=== PATIENT | male | born 1970 | race African-American/Black ===

== ENCOUNTER 2017-08-21 16:05 | Inpatient (IN) | payer MEDICARE, MEDICAID ==
[~2017-08-21] VITALS: Ht 177.8 cm; Wt 127.9 kg
[~2017-08-21 16:05] MED LIST: ASPI-1159 PO; CALC0.253 PO; GLIP10TA10 PO; METO100T16 PO; PIOG15TA6 PO; PRAV20TA57 PO; PRED5TAB48 PO; TERA2CAP4 PO
[2017-08-21] MEDS ORDERED: DEXTROSE 50% WATER 50ML SYRINGE IV PRN ×2 (17:30→19:30)
[2017-08-21] MEDS ORDERED: ONDANSETRON 4MG ODT PO PRN (19:30)
[2017-08-21] MEDS ORDERED: LACTULOSE 20G/30ML UDC PO PRN (19:30)
[2017-08-21] MEDS ORDERED: DOCUSATE SODIUM 100MG CAPSULE PO PRN (19:30)
[2017-08-21 20:00] VITALS: BP_SYST 147; BP_SYST 163; BP_DIAS 70; BP_DIAS 76
[2017-08-21] MEDS ORDERED: NON FORMULARY PATIENT HOME MED EA XX SCH ×4 (21:00→21:45)
[2017-08-21] MEDS: BLOOD SUGAR DIAGNOSTIC STRIP TEST SCH (21:00)
[2017-08-21] MEDS ORDERED: SILVER SULFADIAZINE 1% CREAM 25GM TOP SCH (21:00)
[2017-08-21] MEDS ORDERED: ALBUTEROL (0.083%) 2.5MG/3ML NEB HHN PRN (22:00)
[2017-08-21] MEDS: ATORVASTATIN CALCIUM 10MG TABLET PO SCH (23:17)
[2017-08-21] MEDS: CALCIUM CARBONATE 1250MG TABLET (500MG ELEMENTAL CALCIUM) PO SCH (23:18)
[2017-08-21] MEDS: METOPROLOL TARTRATE 100MG TABLET PO SCH (23:18)
[2017-08-21] MEDS: CLINDAMYCIN HCL 150MG CAPSULE PO SCH (23:18)
[2017-08-21] MEDS: TERAZOSIN HCL 1MG CAPSULE PO SCH (23:20)
[2017-08-21] MEDS: AMOXICILLIN/POTASSIUM CLAVULANATE 500/125MG TAB PO SCH (23:20)
[2017-08-22] MEDS: BLOOD SUGAR DIAGNOSTIC STRIP TEST SCH ×4 (06:11→21:07)
[2017-08-22] MEDS: CLINDAMYCIN HCL 150MG CAPSULE PO SCH ×3 (06:15→21:02)
[2017-08-22 07:39] LABS: BASOPHILS % 1.8 % (0.0-2.0); EOSINOPHILS % 5.9 % (0.0-5.0); HEMATOCRIT. 23.7 % (42.0-52.0); HEMOGLOBIN. 7.6 g/dL (14.0-18.0); LYMPHOCYTES % 25.4 % (20.0-50.0); MEAN CORPUSCULAR HEMOGLOBIN 29.1 pg (28.0-32.0); MEAN CORPUSCULAR VOLUME 90.8 fL (80.0-94.0); MEAN PLATELET VOLUME 7.8 fl (7.4-10.4); MONOCYTES % 9.3 % (2.0-8.0); NEUTROPHILS % 57.6 % (40.0-76.0); PLATELET 213 x1000/uL (130-400); RED CELL DISTRIBUTION WIDTH 17.9 % (11.6-14.6)
[2017-08-22 07:52] VITALS: BP 155/84
[2017-08-22 08:36] LABS: INR 1.2; PROTHROMBIN TIME 12.1 sec (9.4-11.6)
[2017-08-22] MEDS ORDERED: SODIUM HYPOCHLORITE (0.25%) 480ML SOLUTION (HALF STRENGTH) TOP SCH (09:00)
[2017-08-22] MEDS ORDERED: PREDNISONE 10MG TABLET PO SCH (09:00)
[2017-08-22] MEDS: SEVELAMER CARBONATE 800 MG TABLET PO SCH ×3 (10:27→19:24)
[2017-08-22] MEDS: METOPROLOL TARTRATE 100MG TABLET PO SCH ×2 (10:29→21:02)
[2017-08-22] MEDS: LOSARTAN POTASSIUM 100 MG TABLET PO SCH (10:29)
[2017-08-22] MEDS: AMOXICILLIN/POTASSIUM CLAVULANATE 500/125MG TAB PO SCH (10:30)
[2017-08-22] MEDS: CALCIUM CARBONATE 1250MG TABLET (500MG ELEMENTAL CALCIUM) PO SCH ×2 (10:30→21:02)
[2017-08-22] MEDS: SILVER SULFADIAZINE 1% CREAM 50GM TOP SCH (10:31)
[2017-08-22] MEDS: SODIUM HYPOCHLORITE (0.25%) 480ML SOLUTION (HALF STRENGTH) TOP SCH (10:31)
[2017-08-22] MEDS: FLUCONAZOLE 200MG TABLET PO SCH (10:41)
[2017-08-22] MEDS: HEPARIN 5000 UNITS/ML VIAL SUBCUT SCH ×2 (10:41→21:01)
[2017-08-22] MEDS: CALCITRIOL 0.25MCG CAPSULE PO SCH (10:41)
[2017-08-22] MEDS: TRAMADOL 50MG TABLET PO PRN (10:42)
[2017-08-22] MEDS: CIPROFLOXACIN HCL 250MG TABLET PO SCH (11:59)
[2017-08-22] MEDS: ZINC SULFATE 220 MG ( 50 ) CAPSULE PO SCH (19:25)
[2017-08-22] MEDS: FOLIC ACID/VITAMIN B COMP W-C TABLET PO SCH (19:25)
[2017-08-22 20:00] VITALS: BP 159/69
[2017-08-22] MEDS: ASCORBIC ACID 250 MG TABLET PO SCH (21:01)
[2017-08-22] MEDS: TERAZOSIN HCL 1MG CAPSULE PO SCH (21:02)
[2017-08-22] MEDS: ATORVASTATIN CALCIUM 10MG TABLET PO SCH (21:02)
[2017-08-22] MEDS: EPOETIN ALFA 10000UNITS/ML VIAL SUBCUT SCH (21:03)
[2017-08-23] MEDS: CLINDAMYCIN HCL 150MG CAPSULE PO SCH ×3 (05:38→21:30)
[2017-08-23] MEDS: BLOOD SUGAR DIAGNOSTIC STRIP TEST SCH ×4 (05:41→21:34)
[2017-08-23 06:58] LABS: BASOPHILS % 2.2 % (0.0-2.0); EOSINOPHILS % 6.1 % (0.0-5.0); HEMATOCRIT. 23.8 % (42.0-52.0); HEMOGLOBIN. 7.8 g/dL (14.0-18.0); LYMPHOCYTES % 29.8 % (20.0-50.0); MEAN CORPUSCULAR HEMOGLOBIN 29.6 pg (28.0-32.0); MEAN PLATELET VOLUME 7.7 fl (7.4-10.4); MONOCYTES % 10.5 % (2.0-8.0); NEUTROPHILS % 51.4 % (40.0-76.0); PLATELET 186 x1000/uL (130-400); RED BLOOD CELL COUNT 2.64 mill/uL (4.7-6.1); RED CELL DISTRIBUTION WIDTH 17.9 % (11.6-14.6)
[2017-08-23 08:00] VITALS: BP 150/89
[2017-08-23] MEDS: ZINC SULFATE 220 MG ( 50 ) CAPSULE PO SCH (08:33)
[2017-08-23] MEDS: METOPROLOL TARTRATE 100MG TABLET PO SCH ×2 (08:33→21:31)
[2017-08-23] MEDS: AMOXICILLIN/POTASSIUM CLAVULANATE 500/125MG TAB PO SCH (08:33)
[2017-08-23] MEDS: FOLIC ACID/VITAMIN B COMP W-C TABLET PO SCH (08:33)
[2017-08-23] MEDS: CALCITRIOL 0.25MCG CAPSULE PO SCH (08:33)
[2017-08-23] MEDS: LOSARTAN POTASSIUM 100 MG TABLET PO SCH (08:34)
[2017-08-23] MEDS: FLUCONAZOLE 200MG TABLET PO SCH (08:34)
[2017-08-23] MEDS: PREDNISONE 10MG TABLET PO SCH (08:34)
[2017-08-23] MEDS: ASCORBIC ACID 250 MG TABLET PO SCH ×2 (08:35→21:30)
[2017-08-23] MEDS: SEVELAMER CARBONATE 800 MG TABLET PO SCH ×3 (08:35→18:13)
[2017-08-23] MEDS: HEPARIN 5000 UNITS/ML VIAL SUBCUT SCH ×2 (08:38→21:34)
[2017-08-23] MEDS: CALCIUM CARBONATE 1250MG TABLET (500MG ELEMENTAL CALCIUM) PO SCH ×2 (08:47→21:31)
[2017-08-23] MEDS: SODIUM HYPOCHLORITE (0.25%) 480ML SOLUTION (HALF STRENGTH) TOP SCH (08:49)
[2017-08-23] MEDS: SILVER SULFADIAZINE 1% CREAM 50GM TOP SCH (08:49)
[2017-08-23 09:21] LABS: CHLORIDE 108 mEq/L (98-107)
[2017-08-23 09:44] LABS: CARBON DIOXIDE 27 mEq/L (21-32); PHOSPHORUS 3.3 mg/dL (2.5-4.9)
[2017-08-23] MEDS: AMLODIPINE 5MG TABLET PO SCH (10:30)
[2017-08-23] MEDS: TRAMADOL 50MG TABLET PO PRN (15:45)
[2017-08-23 20:00] VITALS: BP 145/75
[2017-08-23] MEDS: TERAZOSIN HCL 1MG CAPSULE PO SCH (21:32)
[2017-08-23] MEDS: CIPROFLOXACIN HCL 250MG TABLET PO SCH (21:33)
[2017-08-23] MEDS: ATORVASTATIN CALCIUM 10MG TABLET PO SCH (21:33)
[2017-08-24] MEDS: BLOOD SUGAR DIAGNOSTIC STRIP TEST SCH ×4 (06:19→21:54)
[2017-08-24] MEDS: CLINDAMYCIN HCL 150MG CAPSULE PO SCH ×3 (06:21→21:53)
[2017-08-24 07:05] LABS: BASOPHILS % 1.5 % (0.0-2.0); EOSINOPHILS % 5.8 % (0.0-5.0); HEMATOCRIT. 25.5 % (42.0-52.0); HEMOGLOBIN. 8.2 g/dL (14.0-18.0); LYMPHOCYTES % 31.9 % (20.0-50.0); MEAN CORPUSCULAR VOLUME 89.9 fL (80.0-94.0); MEAN PLATELET VOLUME 7.7 fl (7.4-10.4); MONOCYTES % 9.5 % (2.0-8.0); NEUTROPHILS % 51.3 % (40.0-76.0); PLATELET 177 x1000/uL (130-400); RED BLOOD CELL COUNT 2.83 mill/uL (4.7-6.1); RED CELL DISTRIBUTION WIDTH 17.6 % (11.6-14.6)
[2017-08-24 07:50] LABS: PHOSPHORUS 4.3 mg/dL (2.5-4.9)
[2017-08-24 08:00] VITALS: BP 158/69
[2017-08-24] MEDS: LOSARTAN POTASSIUM 100 MG TABLET PO SCH (09:00)
[2017-08-24] MEDS: AMLODIPINE 5MG TABLET PO SCH (09:00)
[2017-08-24] MEDS: METOPROLOL TARTRATE 100MG TABLET PO SCH ×2 (09:00→21:54)
[2017-08-24] MEDS: CALCITRIOL 0.25MCG CAPSULE PO SCH (10:14)
[2017-08-24] MEDS: ZINC SULFATE 220 MG ( 50 ) CAPSULE PO SCH (10:15)
[2017-08-24] MEDS: ASCORBIC ACID 250 MG TABLET PO SCH ×2 (10:15→21:53)
[2017-08-24] MEDS: SEVELAMER CARBONATE 800 MG TABLET PO SCH ×3 (10:15→22:03)
[2017-08-24] MEDS: FOLIC ACID/VITAMIN B COMP W-C TABLET PO SCH (10:15)
[2017-08-24] MEDS: FLUCONAZOLE 200MG TABLET PO SCH (10:15)
[2017-08-24] MEDS: AMOXICILLIN/POTASSIUM CLAVULANATE 500/125MG TAB PO SCH (10:16)
[2017-08-24] MEDS: PREDNISONE 10MG TABLET PO SCH (10:16)
[2017-08-24] MEDS: CALCIUM CARBONATE 1250MG TABLET (500MG ELEMENTAL CALCIUM) PO SCH ×2 (10:16→21:53)
[2017-08-24] MEDS: SILVER SULFADIAZINE 1% CREAM 50GM TOP SCH (10:20)
[2017-08-24] MEDS: SODIUM HYPOCHLORITE (0.25%) 480ML SOLUTION (HALF STRENGTH) TOP SCH (10:20)
[2017-08-24] MEDS: HEPARIN 5000 UNITS/ML VIAL SUBCUT SCH ×2 (11:54→21:55)
[2017-08-24 20:00] VITALS: BP 156/74
[2017-08-24] MEDS: CIPROFLOXACIN HCL 250MG TABLET PO SCH (21:53)
[2017-08-24] MEDS: TERAZOSIN HCL 1MG CAPSULE PO SCH (21:53)
[2017-08-24] MEDS: ATORVASTATIN CALCIUM 10MG TABLET PO SCH (21:54)
[2017-08-24] MEDS: EPOETIN ALFA 10000UNITS/ML VIAL SUBCUT SCH (21:54)
[2017-08-25] MEDS: CLINDAMYCIN HCL 150MG CAPSULE PO SCH ×3 (06:07→21:44)
[2017-08-25] MEDS: BLOOD SUGAR DIAGNOSTIC STRIP TEST SCH ×4 (06:07→21:46)
[2017-08-25 08:00] VITALS: BP 131/62
[2017-08-25] MEDS: ASCORBIC ACID 250 MG TABLET PO SCH ×2 (09:15→21:44)
[2017-08-25] MEDS: PREDNISONE 10MG TABLET PO SCH (09:15)
[2017-08-25] MEDS: AMLODIPINE 5MG TABLET PO SCH (09:15)
[2017-08-25] MEDS: FLUCONAZOLE 200MG TABLET PO SCH (09:15)
[2017-08-25] MEDS: CALCITRIOL 0.25MCG CAPSULE PO SCH (09:15)
[2017-08-25] MEDS: AMOXICILLIN/POTASSIUM CLAVULANATE 500/125MG TAB PO SCH (09:15)
[2017-08-25] MEDS: SEVELAMER CARBONATE 800 MG TABLET PO SCH ×3 (09:15→17:14)
[2017-08-25] MEDS: ZINC SULFATE 220 MG ( 50 ) CAPSULE PO SCH (09:16)
[2017-08-25] MEDS: METOPROLOL TARTRATE 100MG TABLET PO SCH ×2 (09:16→21:45)
[2017-08-25] MEDS: FOLIC ACID/VITAMIN B COMP W-C TABLET PO SCH (09:16)
[2017-08-25] MEDS: LOSARTAN POTASSIUM 100 MG TABLET PO SCH (09:16)
[2017-08-25] MEDS: CALCIUM CARBONATE 1250MG TABLET (500MG ELEMENTAL CALCIUM) PO SCH ×2 (09:16→21:45)
[2017-08-25] MEDS: SILVER SULFADIAZINE 1% CREAM 50GM TOP SCH (09:17)
[2017-08-25] MEDS: HEPARIN 5000 UNITS/ML VIAL SUBCUT SCH ×2 (09:17→21:46)
[2017-08-25] MEDS: SODIUM HYPOCHLORITE (0.25%) 480ML SOLUTION (HALF STRENGTH) TOP SCH (09:17)
[2017-08-25] MEDS: TRAMADOL 50MG TABLET PO PRN (11:30)
[2017-08-25] MEDS ORDERED: LACTULOSE 20G/30ML UDC PO SCH (13:40)
[2017-08-25] MEDS: ACETAMINOPHEN 500MG TABLET PO PRN (14:45)
[2017-08-25 20:00] VITALS: BP 145/67
[2017-08-25] MEDS: ATORVASTATIN CALCIUM 10MG TABLET PO SCH (21:44)
[2017-08-25] MEDS: CIPROFLOXACIN HCL 250MG TABLET PO SCH (21:45)
[2017-08-25] MEDS: TERAZOSIN HCL 1MG CAPSULE PO SCH (21:45)
[2017-08-26] MEDS: CLINDAMYCIN HCL 150MG CAPSULE PO SCH ×3 (05:33→21:50)
[2017-08-26] MEDS: BLOOD SUGAR DIAGNOSTIC STRIP TEST SCH ×4 (05:33→21:51)
[2017-08-26 08:16] VITALS: BP 139/65
[2017-08-26] MEDS: SEVELAMER CARBONATE 800 MG TABLET PO SCH ×3 (08:52→21:49)
[2017-08-26] MEDS: FOLIC ACID/VITAMIN B COMP W-C TABLET PO SCH (08:53)
[2017-08-26] MEDS: ASCORBIC ACID 250 MG TABLET PO SCH ×2 (08:56→21:50)
[2017-08-26] MEDS: ZINC SULFATE 220 MG ( 50 ) CAPSULE PO SCH (08:56)
[2017-08-26] MEDS: FLUCONAZOLE 200MG TABLET PO SCH (08:56)
[2017-08-26] MEDS: CALCIUM CARBONATE 1250MG TABLET (500MG ELEMENTAL CALCIUM) PO SCH ×2 (08:56→21:50)
[2017-08-26] MEDS: AMOXICILLIN/POTASSIUM CLAVULANATE 500/125MG TAB PO SCH (08:56)
[2017-08-26] MEDS: HEPARIN 5000 UNITS/ML VIAL SUBCUT SCH ×2 (08:57→21:51)
[2017-08-26] MEDS: PREDNISONE 10MG TABLET PO SCH (08:57)
[2017-08-26] MEDS: METOPROLOL TARTRATE 100MG TABLET PO SCH ×2 (09:00→21:50)
[2017-08-26] MEDS: LOSARTAN POTASSIUM 100 MG TABLET PO SCH (09:00)
[2017-08-26] MEDS: AMLODIPINE 5MG TABLET PO SCH (09:00)
[2017-08-26] MEDS: SODIUM HYPOCHLORITE (0.25%) 480ML SOLUTION (HALF STRENGTH) TOP SCH (09:06)
[2017-08-26] MEDS: SILVER SULFADIAZINE 1% CREAM 50GM TOP SCH (09:06)
[2017-08-26] MEDS: CALCITRIOL 0.25MCG CAPSULE PO SCH (09:45)
[2017-08-26 10:17] LABS: BASOPHILS % 1.8 % (0.0-2.0); EOSINOPHILS % 5.1 % (0.0-5.0); HEMOGLOBIN. 7.8 g/dL (14.0-18.0); LYMPHOCYTES % 33.9 % (20.0-50.0); MEAN CORPUSCULAR HEMOGLOBIN 29.2 pg (28.0-32.0); MEAN CORPUSCULAR VOLUME 89.4 fL (80.0-94.0); MONOCYTES % 10.3 % (2.0-8.0); NEUTROPHILS % 48.9 % (40.0-76.0); PLATELET 149 x1000/uL (130-400); RED BLOOD CELL COUNT 2.68 mill/uL (4.7-6.1); RED CELL DISTRIBUTION WIDTH 17.7 % (11.6-14.6)
[2017-08-26 10:44] LABS: PHOSPHORUS 3.9 mg/dL (2.5-4.9)
[2017-08-26] MEDS ORDERED: HEPARIN SODIUM 1,000 UNIT/1ML VIAL IV NR (17:30)
[2017-08-26 20:00] VITALS: BP 135/71
[2017-08-26] MEDS: CIPROFLOXACIN HCL 250MG TABLET PO SCH (21:49)
[2017-08-26] MEDS: TERAZOSIN HCL 1MG CAPSULE PO SCH (21:50)
[2017-08-26] MEDS: ATORVASTATIN CALCIUM 10MG TABLET PO SCH (21:51)
[2017-08-26] MEDS: EPOETIN ALFA 10000UNITS/ML VIAL SUBCUT SCH (21:51)
[2017-08-27] MEDS: CLINDAMYCIN HCL 150MG CAPSULE PO SCH ×3 (05:39→21:27)
[2017-08-27] MEDS: BLOOD SUGAR DIAGNOSTIC STRIP TEST SCH ×4 (05:40→21:28)
[2017-08-27 08:00] VITALS: BP 151/72
[2017-08-27] MEDS: LOSARTAN POTASSIUM 100 MG TABLET PO SCH (09:46)
[2017-08-27] MEDS: CALCITRIOL 0.25MCG CAPSULE PO SCH (09:46)
[2017-08-27] MEDS: PREDNISONE 10MG TABLET PO SCH (09:47)
[2017-08-27] MEDS: AMLODIPINE 5MG TABLET PO SCH (09:47)
[2017-08-27] MEDS: METOPROLOL TARTRATE 100MG TABLET PO SCH ×2 (09:49→21:29)
[2017-08-27] MEDS: FLUCONAZOLE 200MG TABLET PO SCH (09:49)
[2017-08-27] MEDS: FOLIC ACID/VITAMIN B COMP W-C TABLET PO SCH (09:49)
[2017-08-27] MEDS: ASCORBIC ACID 250 MG TABLET PO SCH ×2 (09:49→21:28)
[2017-08-27] MEDS: SEVELAMER CARBONATE 800 MG TABLET PO SCH ×3 (09:50→18:07)
[2017-08-27] MEDS: CALCIUM CARBONATE 1250MG TABLET (500MG ELEMENTAL CALCIUM) PO SCH ×2 (09:50→21:28)
[2017-08-27] MEDS: AMOXICILLIN/POTASSIUM CLAVULANATE 500/125MG TAB PO SCH (09:51)
[2017-08-27] MEDS: ZINC SULFATE 220 MG ( 50 ) CAPSULE PO SCH (09:51)
[2017-08-27] MEDS: HEPARIN 5000 UNITS/ML VIAL SUBCUT SCH ×2 (09:52→21:29)
[2017-08-27] MEDS: SILVER SULFADIAZINE 1% CREAM 50GM TOP SCH (09:55)
[2017-08-27] MEDS: SODIUM HYPOCHLORITE (0.25%) 480ML SOLUTION (HALF STRENGTH) TOP SCH (09:56)
[2017-08-27 17:11] LABS: 25-HYDROXY VITAMIN D3 9.3 ng/mL (.)
[2017-08-27 20:00] VITALS: BP 156/77
[2017-08-27] MEDS: ATORVASTATIN CALCIUM 10MG TABLET PO SCH (21:25)
[2017-08-27] MEDS: TERAZOSIN HCL 1MG CAPSULE PO SCH (21:27)
[2017-08-27] MEDS: CIPROFLOXACIN HCL 250MG TABLET PO SCH (21:28)
[2017-08-28] MEDS: BLOOD SUGAR DIAGNOSTIC STRIP TEST SCH ×2 (06:02→11:15)
[2017-08-28] MEDS: CLINDAMYCIN HCL 150MG CAPSULE PO SCH ×3 (06:02→21:56)
[2017-08-28 08:00] VITALS: BP 154/76
[2017-08-28] MEDS: AMLODIPINE 5MG TABLET PO SCH ×2 (08:41→22:08)
[2017-08-28] MEDS: CALCIUM CARBONATE 1250MG TABLET (500MG ELEMENTAL CALCIUM) PO SCH ×2 (08:41→21:56)
[2017-08-28] MEDS: FOLIC ACID/VITAMIN B COMP W-C TABLET PO SCH (08:41)
[2017-08-28] MEDS: ASCORBIC ACID 250 MG TABLET PO SCH (08:41)
[2017-08-28] MEDS: AMOXICILLIN/POTASSIUM CLAVULANATE 500/125MG TAB PO SCH (08:42)
[2017-08-28] MEDS: METOPROLOL TARTRATE 100MG TABLET PO SCH ×2 (08:42→21:57)
[2017-08-28] MEDS: PREDNISONE 10MG TABLET PO SCH (08:42)
[2017-08-28] MEDS: CALCITRIOL 0.25MCG CAPSULE PO SCH (08:42)
[2017-08-28] MEDS: FLUCONAZOLE 200MG TABLET PO SCH (08:42)
[2017-08-28] MEDS: LOSARTAN POTASSIUM 100 MG TABLET PO SCH (08:42)
[2017-08-28] MEDS: ZINC SULFATE 220 MG ( 50 ) CAPSULE PO SCH (08:42)
[2017-08-28] MEDS: SODIUM HYPOCHLORITE (0.25%) 480ML SOLUTION (HALF STRENGTH) TOP SCH (08:43)
[2017-08-28] MEDS: SEVELAMER CARBONATE 800 MG TABLET PO SCH ×3 (08:43→16:33)
[2017-08-28] MEDS: SILVER SULFADIAZINE 1% CREAM 50GM TOP SCH (08:43)
[2017-08-28] MEDS: HEPARIN 5000 UNITS/ML VIAL SUBCUT SCH ×2 (08:44→21:59)
[2017-08-28] MEDS ORDERED: ERGOCALCIFEROL 50000UNITS CAPSULE PO SCH (14:00)
[2017-08-28] MEDS: ACETAMINOPHEN 500MG TABLET PO PRN (14:46)
[2017-08-28 20:00] VITALS: BP 147/69
[2017-08-28] MEDS: TERAZOSIN HCL 1MG CAPSULE PO SCH (21:56)
[2017-08-28] MEDS: ATORVASTATIN CALCIUM 10MG TABLET PO SCH (21:56)
[2017-08-29] MEDS: EPOETIN ALFA 10000UNITS/ML VIAL SUBCUT SCH (00:43)
[2017-08-29 06:31] LABS: BASOPHILS % 1.6 % (0.0-2.0); EOSINOPHILS % 5.6 % (0.0-5.0); HEMATOCRIT. 24.8 % (42.0-52.0); LYMPHOCYTES % 33.1 % (20.0-50.0); MEAN CORPUSCULAR HEMOGLOBIN 28.8 pg (28.0-32.0); MEAN CORPUSCULAR VOLUME 89.3 fL (80.0-94.0); MEAN PLATELET VOLUME 7.8 fl (7.4-10.4); MONOCYTES % 10.1 % (2.0-8.0); NEUTROPHILS % 49.6 % (40.0-76.0); PLATELET 147 x1000/uL (130-400); RED BLOOD CELL COUNT 2.78 mill/uL (4.7-6.1); RED CELL DISTRIBUTION WIDTH 16.8 % (11.6-14.6)
[2017-08-29 08:00] VITALS: BP 150/76
[2017-08-29] MEDS: LOSARTAN POTASSIUM 100 MG TABLET PO SCH (09:00)
[2017-08-29] MEDS: AMLODIPINE 5MG TABLET PO SCH ×2 (09:00→23:14)
[2017-08-29] MEDS: CALCIUM CARBONATE 1250MG TABLET (500MG ELEMENTAL CALCIUM) PO SCH ×2 (09:45→23:15)
[2017-08-29] MEDS: ZINC SULFATE 220 MG ( 50 ) CAPSULE PO SCH (09:45)
[2017-08-29] MEDS: SEVELAMER CARBONATE 800 MG TABLET PO SCH ×3 (09:45→17:00)
[2017-08-29] MEDS: FOLIC ACID/VITAMIN B COMP W-C TABLET PO SCH (09:45)
[2017-08-29] MEDS: FLUCONAZOLE 200MG TABLET PO SCH (09:45)
[2017-08-29] MEDS: METOPROLOL TARTRATE 100MG TABLET PO SCH ×2 (09:46→23:15)
[2017-08-29] MEDS: HEPARIN 5000 UNITS/ML VIAL SUBCUT SCH ×2 (09:48→23:15)
[2017-08-29] MEDS: SILVER SULFADIAZINE 1% CREAM 50GM TOP SCH (09:49)
[2017-08-29] MEDS: SODIUM HYPOCHLORITE (0.25%) 480ML SOLUTION (HALF STRENGTH) TOP SCH (09:49)
[2017-08-29] MEDS: ASCORBIC ACID 250 MG TABLET PO SCH ×2 (14:12→23:14)
[2017-08-29] MEDS: CALCITRIOL 0.25MCG CAPSULE PO SCH (14:12)
[2017-08-29 20:00] VITALS: BP 159/111
[2017-08-29] MEDS: ATORVASTATIN CALCIUM 10MG TABLET PO SCH (23:14)
[2017-08-29] MEDS: TERAZOSIN HCL 1MG CAPSULE PO SCH (23:14)
[2017-08-29 23:16] VITALS: BP 123/57
[2017-08-30 08:00] VITALS: BP 144/54
[2017-08-30] MEDS: AMLODIPINE 5MG TABLET PO SCH ×2 (09:00→21:00)
[2017-08-30] MEDS: METOPROLOL TARTRATE 100MG TABLET PO SCH ×2 (09:00→21:00)
[2017-08-30] MEDS: LOSARTAN POTASSIUM 100 MG TABLET PO SCH (09:00)
[2017-08-30] MEDS: PREDNISONE 5MG TABLET PO SCH (09:22)
[2017-08-30] MEDS: FOLIC ACID/VITAMIN B COMP W-C TABLET PO SCH (09:22)
[2017-08-30] MEDS: ZINC SULFATE 220 MG ( 50 ) CAPSULE PO SCH (09:22)
[2017-08-30] MEDS: CALCITRIOL 0.25MCG CAPSULE PO SCH (09:23)
[2017-08-30] MEDS: SEVELAMER CARBONATE 800 MG TABLET PO SCH ×3 (09:25→16:52)
[2017-08-30] MEDS: CALCIUM CARBONATE 1250MG TABLET (500MG ELEMENTAL CALCIUM) PO SCH ×2 (09:26→21:22)
[2017-08-30] MEDS: ASCORBIC ACID 250 MG TABLET PO SCH ×2 (09:26→21:22)
[2017-08-30] MEDS: HEPARIN 5000 UNITS/ML VIAL SUBCUT SCH ×2 (09:28→21:22)
[2017-08-30] MEDS: SILVER SULFADIAZINE 1% CREAM 50GM TOP SCH (09:36)
[2017-08-30] MEDS: SODIUM HYPOCHLORITE (0.25%) 480ML SOLUTION (HALF STRENGTH) TOP SCH (09:37)
[2017-08-30 20:00] VITALS: BP 91/44
[2017-08-30] MEDS: TERAZOSIN HCL 1MG CAPSULE PO SCH (21:00)
[2017-08-30] MEDS: ATORVASTATIN CALCIUM 10MG TABLET PO SCH (21:22)
[2017-08-30] MEDS: EPOETIN ALFA 10000UNITS/ML VIAL SUBCUT SCH (21:22)
[2017-08-31 04:40] VITALS: BP 127/55
[2017-08-31 07:00] VITALS: BP 117/43
[2017-08-31 07:20] LABS: BASOPHILS % 1.5 % (0.0-2.0); EOSINOPHILS % 5.4 % (0.0-5.0); HEMATOCRIT. 24.4 % (42.0-52.0); LYMPHOCYTES % 34.8 % (20.0-50.0); MEAN CORPUSCULAR VOLUME 88.9 fL (80.0-94.0); MEAN PLATELET VOLUME 7.6 fl (7.4-10.4); MONOCYTES % 12.3 % (2.0-8.0); PLATELET 127 x1000/uL (130-400); RED BLOOD CELL COUNT 2.75 mill/uL (4.7-6.1); RED CELL DISTRIBUTION WIDTH 16.8 % (11.6-14.6)
[2017-08-31 08:34] LABS: PHOSPHORUS 4.7 mg/dL (2.5-4.9)
[2017-08-31] MEDS: CALCIUM CARBONATE 1250MG TABLET (500MG ELEMENTAL CALCIUM) PO SCH ×2 (08:41→21:54)
[2017-08-31] MEDS: SEVELAMER CARBONATE 800 MG TABLET PO SCH ×3 (08:41→21:54)
[2017-08-31] MEDS: ZINC SULFATE 220 MG ( 50 ) CAPSULE PO SCH (08:41)
[2017-08-31] MEDS: ASCORBIC ACID 250 MG TABLET PO SCH ×2 (08:41→21:54)
[2017-08-31] MEDS: PREDNISONE 5MG TABLET PO SCH (08:41)
[2017-08-31] MEDS: FOLIC ACID/VITAMIN B COMP W-C TABLET PO SCH (08:41)
[2017-08-31] MEDS: LOSARTAN POTASSIUM 100 MG TABLET PO SCH (08:42)
[2017-08-31] MEDS: METOPROLOL TARTRATE 100MG TABLET PO SCH ×2 (08:42→21:00)
[2017-08-31] MEDS: HEPARIN 5000 UNITS/ML VIAL SUBCUT SCH ×2 (08:42→21:56)
[2017-08-31] MEDS: CALCITRIOL 0.25MCG CAPSULE PO SCH (08:42)
[2017-08-31] MEDS: AMLODIPINE 5MG TABLET PO SCH ×2 (08:43→21:00)
[2017-08-31] MEDS: SILVER SULFADIAZINE 1% CREAM 50GM TOP SCH (08:44)
[2017-08-31] MEDS: SODIUM HYPOCHLORITE (0.25%) 480ML SOLUTION (HALF STRENGTH) TOP SCH (08:44)
[2017-08-31 12:55] LABS: BASOPHILS % 1.1 % (0.0-2.0); EOSINOPHILS % 2.9 % (0.0-5.0); HEMATOCRIT. 23.6 % (42.0-52.0); HEMOGLOBIN. 7.6 g/dL (14.0-18.0); LYMPHOCYTES % 19.3 % (20.0-50.0); MEAN CORPUSCULAR HEMOGLOBIN 28.8 pg (28.0-32.0); MEAN CORPUSCULAR VOLUME 89.1 fL (80.0-94.0); MEAN PLATELET VOLUME 7.8 fl (7.4-10.4); MONOCYTES % 7.8 % (2.0-8.0); NEUTROPHILS % 68.9 % (40.0-76.0); PLATELET 140 x1000/uL (130-400); RED BLOOD CELL COUNT 2.65 mill/uL (4.7-6.1); RED CELL DISTRIBUTION WIDTH 16.9 % (11.6-14.6)
[2017-08-31 13:10] LABS: PHOSPHORUS 3.8 mg/dL (2.5-4.9)
[2017-08-31 20:00] VITALS: BP 110/45
[2017-08-31] MEDS: TERAZOSIN HCL 1MG CAPSULE PO SCH (21:00)
[2017-08-31] MEDS: ATORVASTATIN CALCIUM 10MG TABLET PO SCH (21:54)
[2017-09-01 08:00] VITALS: BP 127/53
[2017-09-01] MEDS: SEVELAMER CARBONATE 800 MG TABLET PO SCH ×3 (10:38→18:08)
[2017-09-01] MEDS: HEPARIN 5000 UNITS/ML VIAL SUBCUT SCH ×2 (10:39→21:35)
[2017-09-01] MEDS: CALCITRIOL 0.25MCG CAPSULE PO SCH (10:39)
[2017-09-01] MEDS: FOLIC ACID/VITAMIN B COMP W-C TABLET PO SCH (10:40)
[2017-09-01] MEDS: ASCORBIC ACID 250 MG TABLET PO SCH ×2 (10:42→21:36)
[2017-09-01] MEDS: PREDNISONE 5MG TABLET PO SCH (10:42)
[2017-09-01] MEDS: METOPROLOL TARTRATE 100MG TABLET PO SCH ×2 (10:43→21:36)
[2017-09-01] MEDS: ZINC SULFATE 220 MG ( 50 ) CAPSULE PO SCH (10:43)
[2017-09-01] MEDS: SILVER SULFADIAZINE 1% CREAM 50GM TOP SCH (10:53)
[2017-09-01] MEDS: ACETAMINOPHEN 500MG TABLET PO PRN ×3 (11:08→22:09)
[2017-09-01] MEDS ORDERED: SEVELAMER CARBONATE 800 MG TABLET PO SCH (13:00)
[2017-09-01] MEDS: LOSARTAN POTASSIUM 100 MG TABLET PO SCH (15:54)
[2017-09-01] MEDS: AMLODIPINE 5MG TABLET PO SCH (15:55)
[2017-09-01] MEDS: SODIUM HYPOCHLORITE (0.25%) 480ML SOLUTION (HALF STRENGTH) TOP SCH (15:57)
[2017-09-01 19:26] VITALS: BP 113/53
[2017-09-01 20:36] LABS: BASOPHILS % 1.2 % (0.0-2.0); EOSINOPHILS % 4.1 % (0.0-5.0); HEMATOCRIT. 24.5 % (42.0-52.0); HEMOGLOBIN. 7.9 g/dL (14.0-18.0); LYMPHOCYTES % 30.7 % (20.0-50.0); MEAN CORPUSCULAR HEMOGLOBIN 28.8 pg (28.0-32.0); MEAN CORPUSCULAR VOLUME 89.8 fL (80.0-94.0); MEAN PLATELET VOLUME 7.8 fl (7.4-10.4); PLATELET 145 x1000/uL (130-400); RED BLOOD CELL COUNT 2.72 mill/uL (4.7-6.1); RED CELL DISTRIBUTION WIDTH 17.6 % (11.6-14.6)
[2017-09-01 20:43] LABS: PHOSPHORUS 3.3 mg/dL (2.5-4.9)
[2017-09-01] MEDS: EPOETIN ALFA 10000UNITS/ML VIAL SUBCUT SCH (21:35)
[2017-09-01] MEDS: ATORVASTATIN CALCIUM 10MG TABLET PO SCH (21:36)
[2017-09-01] MEDS: TERAZOSIN HCL 1MG CAPSULE PO SCH (23:22)
[2017-09-02] MEDS: AMLODIPINE 5MG TABLET PO SCH ×3 (00:41→21:15)
[2017-09-02 06:04] LABS: CHLORIDE 107 mEq/L (98-107)
[2017-09-02 06:12] LABS: CARBON DIOXIDE 30 mEq/L (21-32); PHOSPHORUS 3.6 mg/dL (2.5-4.9)
[2017-09-02 06:24] LABS: BASOPHILS % 1.2 % (0.0-2.0); EOSINOPHILS % 8.2 % (0.0-5.0); HEMATOCRIT. 25.9 % (42.0-52.0); HEMOGLOBIN. 8.3 g/dL (14.0-18.0); LYMPHOCYTES % 33.8 % (20.0-50.0); MEAN CORPUSCULAR HEMOGLOBIN 28.9 pg (28.0-32.0); MEAN CORPUSCULAR VOLUME 89.5 fL (80.0-94.0); MEAN PLATELET VOLUME 7.9 fl (7.4-10.4); MONOCYTES % 7.8 % (2.0-8.0); PLATELET 159 x1000/uL (130-400); RED BLOOD CELL COUNT 2.89 mill/uL (4.7-6.1); RED CELL DISTRIBUTION WIDTH 16.8 % (11.6-14.6)
[2017-09-02 08:00] VITALS: BP 116/57
[2017-09-02] MEDS: HEPARIN 5000 UNITS/ML VIAL SUBCUT SCH ×2 (09:11→21:16)
[2017-09-02] MEDS: CALCITRIOL 0.25MCG CAPSULE PO SCH (09:11)
[2017-09-02] MEDS: SEVELAMER CARBONATE 800 MG TABLET PO SCH ×3 (09:12→21:14)
[2017-09-02] MEDS: ASCORBIC ACID 250 MG TABLET PO SCH ×2 (09:12→21:15)
[2017-09-02] MEDS: FOLIC ACID/VITAMIN B COMP W-C TABLET PO SCH (09:12)
[2017-09-02] MEDS: LOSARTAN POTASSIUM 100 MG TABLET PO SCH (09:12)
[2017-09-02] MEDS: ACETAMINOPHEN 500MG TABLET PO PRN (09:12)
[2017-09-02] MEDS: METOPROLOL TARTRATE 100MG TABLET PO SCH ×2 (09:12→21:14)
[2017-09-02] MEDS: ZINC SULFATE 220 MG ( 50 ) CAPSULE PO SCH (09:12)
[2017-09-02] MEDS: PREDNISONE 5MG TABLET PO SCH (09:13)
[2017-09-02] MEDS: SILVER SULFADIAZINE 1% CREAM 50GM TOP SCH (09:13)
[2017-09-02] MEDS: SODIUM HYPOCHLORITE (0.25%) 480ML SOLUTION (HALF STRENGTH) TOP SCH (09:13)
[2017-09-02 20:00] VITALS: BP 129/56
[2017-09-02] MEDS: ATORVASTATIN CALCIUM 10MG TABLET PO SCH (21:15)
[2017-09-02] MEDS: TERAZOSIN HCL 1MG CAPSULE PO SCH (21:15)
[2017-09-03 08:00] VITALS: BP 118/57
[2017-09-03] MEDS: HEPARIN 5000 UNITS/ML VIAL SUBCUT SCH ×2 (09:33→20:48)
[2017-09-03] MEDS: SEVELAMER CARBONATE 800 MG TABLET PO SCH ×3 (09:33→17:37)
[2017-09-03] MEDS: ZINC SULFATE 220 MG ( 50 ) CAPSULE PO SCH (09:34)
[2017-09-03] MEDS: AMLODIPINE 5MG TABLET PO SCH ×2 (09:34→20:47)
[2017-09-03] MEDS: LOSARTAN POTASSIUM 100 MG TABLET PO SCH (09:34)
[2017-09-03] MEDS: FOLIC ACID/VITAMIN B COMP W-C TABLET PO SCH (09:35)
[2017-09-03] MEDS: PREDNISONE 5MG TABLET PO SCH (09:35)
[2017-09-03] MEDS: METOPROLOL TARTRATE 100MG TABLET PO SCH ×2 (09:35→20:47)
[2017-09-03] MEDS: CALCITRIOL 0.25MCG CAPSULE PO SCH (09:35)
[2017-09-03] MEDS: ASCORBIC ACID 250 MG TABLET PO SCH ×2 (09:35→20:48)
[2017-09-03] MEDS: SILVER SULFADIAZINE 1% CREAM 50GM TOP SCH (09:36)
[2017-09-03] MEDS: SODIUM HYPOCHLORITE (0.25%) 480ML SOLUTION (HALF STRENGTH) TOP SCH (09:36)
[2017-09-03 20:00] VITALS: BP 142/66
[2017-09-03] MEDS: TERAZOSIN HCL 1MG CAPSULE PO SCH (20:47)
[2017-09-03] MEDS: ATORVASTATIN CALCIUM 10MG TABLET PO SCH (20:48)
[2017-09-04 07:30] VITALS: BP 142/47
[2017-09-04 07:47] LABS: BASOPHILS % 1.2 % (0.0-2.0); EOSINOPHILS % 7.5 % (0.0-5.0); HEMOGLOBIN. 8.1 g/dL (14.0-18.0); LYMPHOCYTES % 36.2 % (20.0-50.0); MEAN CORPUSCULAR HEMOGLOBIN 28.9 pg (28.0-32.0); MEAN CORPUSCULAR VOLUME 89.5 fL (80.0-94.0); MONOCYTES % 6.7 % (2.0-8.0); NEUTROPHILS % 48.4 % (40.0-76.0); PLATELET 158 x1000/uL (130-400); RED CELL DISTRIBUTION WIDTH 16.7 % (11.6-14.6)
[2017-09-04 08:18] LABS: PHOSPHORUS 3.8 mg/dL (2.5-4.9)
[2017-09-04] MEDS: METOPROLOL TARTRATE 100MG TABLET PO SCH ×2 (09:00→21:00)
[2017-09-04] MEDS: LOSARTAN POTASSIUM 100 MG TABLET PO SCH (09:00)
[2017-09-04] MEDS: AMLODIPINE 5MG TABLET PO SCH ×2 (09:00→21:00)
[2017-09-04] MEDS: PREDNISONE 5MG TABLET PO SCH (09:10)
[2017-09-04] MEDS: SEVELAMER CARBONATE 800 MG TABLET PO SCH ×3 (09:11→17:25)
[2017-09-04] MEDS: FOLIC ACID/VITAMIN B COMP W-C TABLET PO SCH (09:11)
[2017-09-04] MEDS: CALCITRIOL 0.25MCG CAPSULE PO SCH (09:11)
[2017-09-04] MEDS: ASCORBIC ACID 250 MG TABLET PO SCH ×2 (09:11→22:18)
[2017-09-04] MEDS: HEPARIN 5000 UNITS/ML VIAL SUBCUT SCH ×2 (09:12→22:20)
[2017-09-04] MEDS: ZINC SULFATE 220 MG ( 50 ) CAPSULE PO SCH (09:13)
[2017-09-04] MEDS: SODIUM HYPOCHLORITE (0.25%) 480ML SOLUTION (HALF STRENGTH) TOP SCH (09:15)
[2017-09-04] MEDS: SILVER SULFADIAZINE 1% CREAM 50GM TOP SCH (09:15)
[2017-09-04] MEDS: ACETAMINOPHEN 500MG TABLET PO PRN (11:13)
[2017-09-04 20:00] VITALS: BP 142/68
[2017-09-04] MEDS ORDERED: EPOETIN ALFA 10000UNITS/ML VIAL SUBCUT SCH ×2 (21:00)
[2017-09-04] MEDS ORDERED: EPOETIN ALFA 4000UNITS/ML VIAL SUBCUT SCH (21:00)
[2017-09-04] MEDS: ATORVASTATIN CALCIUM 10MG TABLET PO SCH (22:18)
[2017-09-04] MEDS: TERAZOSIN HCL 1MG CAPSULE PO SCH (22:21)
[2017-09-05 08:00] VITALS: BP 127/62
[2017-09-05] MEDS: CALCITRIOL 0.25MCG CAPSULE PO SCH (08:36)
[2017-09-05] MEDS: PREDNISONE 5MG TABLET PO SCH (08:37)
[2017-09-05] MEDS: AMLODIPINE 5MG TABLET PO SCH (08:37)
[2017-09-05] MEDS: FOLIC ACID/VITAMIN B COMP W-C TABLET PO SCH (08:39)
[2017-09-05] MEDS: METOPROLOL TARTRATE 100MG TABLET PO SCH ×2 (08:39→22:23)
[2017-09-05] MEDS: ASCORBIC ACID 250 MG TABLET PO SCH ×2 (08:39→22:23)
[2017-09-05] MEDS: ZINC SULFATE 220 MG ( 50 ) CAPSULE PO SCH (08:40)
[2017-09-05] MEDS: SEVELAMER CARBONATE 800 MG TABLET PO SCH ×3 (08:40→18:05)
[2017-09-05] MEDS: HEPARIN 5000 UNITS/ML VIAL SUBCUT SCH ×2 (08:42→22:24)
[2017-09-05] MEDS: LOSARTAN POTASSIUM 100 MG TABLET PO SCH (08:48)
[2017-09-05 20:00] VITALS: BP 113/59
[2017-09-05] MEDS: ATORVASTATIN CALCIUM 10MG TABLET PO SCH (22:22)
[2017-09-05] MEDS: TERAZOSIN HCL 1MG CAPSULE PO SCH (22:22)
[2017-09-06 07:08] LABS: BASOPHILS % 0.9 % (0.0-2.0); EOSINOPHILS % 8.1 % (0.0-5.0); HEMATOCRIT. 27.5 % (42.0-52.0); HEMOGLOBIN. 8.7 g/dL (14.0-18.0); LYMPHOCYTES % 34.9 % (20.0-50.0); MEAN CORPUSCULAR HEMOGLOBIN 28.3 pg (28.0-32.0); MEAN CORPUSCULAR VOLUME 89.8 fL (80.0-94.0); MEAN PLATELET VOLUME 7.8 fl (7.4-10.4); MONOCYTES % 8.6 % (2.0-8.0); NEUTROPHILS % 47.5 % (40.0-76.0); PLATELET 198 x1000/uL (130-400); RED BLOOD CELL COUNT 3.06 mill/uL (4.7-6.1); RED CELL DISTRIBUTION WIDTH 16.7 % (11.6-14.6)
[2017-09-06 08:10] LABS: PHOSPHORUS 4.4 mg/dL (2.5-4.9)
[2017-09-06] MEDS: SEVELAMER CARBONATE 800 MG TABLET PO SCH ×3 (08:25→17:03)
[2017-09-06] MEDS: PREDNISONE 5MG TABLET PO SCH (08:25)
[2017-09-06] MEDS: FOLIC ACID/VITAMIN B COMP W-C TABLET PO SCH (08:25)
[2017-09-06] MEDS: ZINC SULFATE 220 MG ( 50 ) CAPSULE PO SCH (08:25)
[2017-09-06] MEDS: ASCORBIC ACID 250 MG TABLET PO SCH ×2 (08:25→22:01)
[2017-09-06] MEDS: HEPARIN 5000 UNITS/ML VIAL SUBCUT SCH ×2 (08:26→22:04)
[2017-09-06 08:28] VITALS: BP 115/64
[2017-09-06] MEDS: METOPROLOL TARTRATE 100MG TABLET PO SCH ×2 (08:34→21:00)
[2017-09-06] MEDS: ACETAMINOPHEN 500MG TABLET PO PRN (11:34)
[2017-09-06] MEDS: LOSARTAN POTASSIUM 50 MG TABLET PO SCH (14:00)
[2017-09-06] MEDS ORDERED: LOSARTAN POTASSIUM 100 MG TABLET PO SCH (17:00)
[2017-09-06 20:00] VITALS: BP_SYST 103; BP_SYST 110; BP_DIAS 60; BP_DIAS 62
[2017-09-06] MEDS: TERAZOSIN HCL 1MG CAPSULE PO SCH (21:00)
[2017-09-06] MEDS: ATORVASTATIN CALCIUM 10MG TABLET PO SCH (22:01)
[2017-09-07 07:18] LABS: BASOPHILS % 1.2 % (0.0-2.0); EOSINOPHILS % 7.4 % (0.0-5.0); HEMATOCRIT. 25.8 % (42.0-52.0); HEMOGLOBIN. 8.2 g/dL (14.0-18.0); LYMPHOCYTES % 34.8 % (20.0-50.0); MEAN CORPUSCULAR HEMOGLOBIN 28.5 pg (28.0-32.0); MEAN CORPUSCULAR VOLUME 89.5 fL (80.0-94.0); MEAN PLATELET VOLUME 7.7 fl (7.4-10.4); MONOCYTES % 6.9 % (2.0-8.0); NEUTROPHILS % 49.7 % (40.0-76.0); PLATELET 202 x1000/uL (130-400); RED BLOOD CELL COUNT 2.88 mill/uL (4.7-6.1)
[2017-09-07 08:00] VITALS: BP 145/67
[2017-09-07 08:30] LABS: PHOSPHORUS 4.2 mg/dL (2.5-4.9)
[2017-09-07] MEDS: ZINC SULFATE 220 MG ( 50 ) CAPSULE PO SCH (08:42)
[2017-09-07] MEDS: ASCORBIC ACID 250 MG TABLET PO SCH ×2 (08:42→22:26)
[2017-09-07] MEDS: FOLIC ACID/VITAMIN B COMP W-C TABLET PO SCH (08:42)
[2017-09-07] MEDS: SEVELAMER CARBONATE 800 MG TABLET PO SCH ×3 (08:42→16:29)
[2017-09-07] MEDS: METOPROLOL TARTRATE 100MG TABLET PO SCH ×2 (08:42→21:00)
[2017-09-07] MEDS: LOSARTAN POTASSIUM 50 MG TABLET PO SCH (08:42)
[2017-09-07] MEDS: HEPARIN 5000 UNITS/ML VIAL SUBCUT SCH ×2 (08:42→22:25)
[2017-09-07] MEDS: PREDNISONE 5MG TABLET PO SCH (08:42)
[2017-09-07] MEDS: BLOOD SUGAR DIAGNOSTIC STRIP TEST SCH ×2 (08:52→16:30)
[2017-09-07 20:00] VITALS: BP 140/71
[2017-09-07] MEDS ORDERED: EPOETIN ALFA 10000UNITS/ML VIAL SUBCUT NR (21:00)
[2017-09-07] MEDS ORDERED: EPOETIN ALFA 4000UNITS/ML VIAL SUBCUT NR (21:00)
[2017-09-07] MEDS: TERAZOSIN HCL 1MG CAPSULE PO SCH (21:00)
[2017-09-07] MEDS: ATORVASTATIN CALCIUM 10MG TABLET PO SCH (22:26)
[2017-09-08 08:00] VITALS: BP 118/58
[2017-09-08] MEDS: BLOOD SUGAR DIAGNOSTIC STRIP TEST SCH (09:00)
[2017-09-08] MEDS: ASCORBIC ACID 250 MG TABLET PO SCH (09:04)
[2017-09-08] MEDS: SEVELAMER CARBONATE 800 MG TABLET PO SCH ×2 (09:04→12:46)
[2017-09-08] MEDS: PREDNISONE 5MG TABLET PO SCH (09:04)
[2017-09-08] MEDS: ZINC SULFATE 220 MG ( 50 ) CAPSULE PO SCH (09:05)
[2017-09-08] MEDS: LOSARTAN POTASSIUM 50 MG TABLET PO SCH (09:05)
[2017-09-08] MEDS: FOLIC ACID/VITAMIN B COMP W-C TABLET PO SCH (09:05)
[2017-09-08] MEDS: METOPROLOL TARTRATE 100MG TABLET PO SCH (09:05)
[2017-09-08] MEDS: HEPARIN 5000 UNITS/ML VIAL SUBCUT SCH (09:06)
[2017-09-08] MEDS ORDERED: LOSA100T14 PO (13:48)
[2017-09-08 14:46] VITALS: BP 128/70
== END 2017-09-08 15:03 | disposition home health service (06) | DRG 70 ==
PROVIDERS: ADMIT Physical Medicine & Rehabilitation Spinal Cord Injury Medicine; ATTEND Internal Medicine Nephrology
PROC: 5A1D70Z Performance of Urinary Filtration, Intermittent, Less than 6 Hours Per Day (ICD-10-PCS; principal; 2017-08-22)
PROC: 5A1D70Z Performance of Urinary Filtration, Intermittent, Less than 6 Hours Per Day (ICD-10-PCS; 2017-08-23)
PROC: 5A1D70Z Performance of Urinary Filtration, Intermittent, Less than 6 Hours Per Day (ICD-10-PCS; 2017-08-25)
PROC: 5A1D70Z Performance of Urinary Filtration, Intermittent, Less than 6 Hours Per Day (ICD-10-PCS; 2017-08-28)
PROC: 5A1D70Z Performance of Urinary Filtration, Intermittent, Less than 6 Hours Per Day (ICD-10-PCS; 2017-08-29)
PROC: 5A1D70Z Performance of Urinary Filtration, Intermittent, Less than 6 Hours Per Day (ICD-10-PCS; 2017-08-30)
PROC: 5A1D70Z Performance of Urinary Filtration, Intermittent, Less than 6 Hours Per Day (ICD-10-PCS; 2017-09-01)
PROC: 5A1D70Z Performance of Urinary Filtration, Intermittent, Less than 6 Hours Per Day (ICD-10-PCS; 2017-09-03)
PROC: 5A1D70Z Performance of Urinary Filtration, Intermittent, Less than 6 Hours Per Day (ICD-10-PCS; 2017-09-05)
PROC: 5A1D70Z Performance of Urinary Filtration, Intermittent, Less than 6 Hours Per Day (ICD-10-PCS; 2017-09-06)
DX: G93.41 Metabolic encephalopathy (principal); J96.01 Acute respiratory failure with hypoxia; I46.9 Cardiac arrest, cause unspecified; G62.81 Critical illness polyneuropathy; M72.6 Necrotizing fasciitis; R65.21 Severe sepsis with septic shock; I12.0 Hypertensive chronic kidney disease with stage 5 chronic kidney disease or end stage renal disease; L03.116 Cellulitis of left lower limb; E66.01 Morbid (severe) obesity due to excess calories; A41.9 Sepsis, unspecified organism; N18.6 End stage renal disease; Z94.0 Kidney transplant status; Z68.41 Body mass index [BMI] 40.0-44.9, adult; R13.10 Dysphagia, unspecified; G47.33 Obstructive sleep apnea (adult) (pediatric); E11.22 Type 2 diabetes mellitus with diabetic chronic kidney disease; D64.9 Anemia, unspecified; E55.9 Vitamin D deficiency, unspecified; F06.8 Other specified mental disorders due to known physiological condition; F06.31 Mood disorder due to known physiological condition with depressive features; I95.1 Orthostatic hypotension; R26.9 Unspecified abnormalities of gait and mobility; Z99.2 Dependence on renal dialysis; Z82.49 Family history of ischemic heart disease and other diseases of the circulatory system; Z79.52 Long term (current) use of systemic steroids
CPT/HCPCS: 36415; 80048; 80053; 82270; 82306; 82330; 82607; 82652; 82728; 82746; 82962; 83540; 83550; 83735; 83970; 84100; 84134; 84443; 84630; 85025; 85610; 92523; 92610; 93970; 97110; 97116; 97127; 97163; 97166; 97530; 97532; 97535; A6261; J0885; J1644; J7030; J7512